=== PATIENT | female | born 1940 ===

== ENCOUNTER 2017-06-22 10:58 | Observation (INO) | payer MEDICAID, OTHER ==
[2017-06-22 12:08] LABS: BASO # 0.1 K/uL (0.0-0.2); EOS # 0.4 K/uL (0.0-0.7); EOS % 4.8 % (0.0-4.0); HEMATOCRIT 38.1 % (34.0-47.0); LYMPH # 1.3 K/uL (1.0-4.3); LYMPH % 16.8 % (20.0-40.0); MEAN CELL VOLUME 80.9 fL (81.0-99.0); MEAN CORPUSCULAR HEMOGLOBIN 26.1 pg (27.0-31.0); MEAN CORPUSCULAR HGB CONC 32.3 g/dL (33.0-37.0); MEAN PLATELET VOLUME 8.6 fL (7.2-11.7); MONO # 0.8 K/uL (0.0-0.8); MONO % 10.3 % (0.0-10.0); RED CELL DISTRIBUTION WIDTH 15.5 % (11.5-14.5); WHITE BLOOD COUNT 7.8 K/uL (4.8-10.8)
--- NOTE | 2017-06-22 12:08 | C.PDOC ---
History Of Present Illness <MoisesRoseline Wai - Last Filed: 06/22/17 12:02> <Daphnie Cai - Last Filed: 06/22/17 12:41> 76 year old female with Hx of COPD presents to the ED for evaluation of productive cough with clear phlegm for the past 2 days that has been worsening along with SOB. Patient reports using her inhaler and mask with albuterol both with no relief to her symptoms. Patient denies fever, throat pain, ear pain, nausea, vomit, headache, weakness, numbness. (Roseline De Leon) History Per: Patient History/Exam Limitations: no limitations Onset/Duration Of Symptoms: Days Current Symptoms Are (Timing): Still Present Sick Contacts (Context): None Associated Symptoms: Cough, Sputum Recent travel outside of the [place]: No Additional History Per: Patient <MoisesRoseline Wai - Last Filed: 06/22/17 12:02> <Daphnie Cai - Last Filed: 06/22/17 12:41> Time Seen by Provider: 06/22/17 11:27 Chief Complaint (Nursing): Cough, Cold, Congestion Past Medical History Reviewed: Historical Data, Nursing Documentation, Vital Signs - Medical History PMH: COPD, HTN, Parkinson's Disease Surgical History: No Surg Hx Family History: States: Unknown Family Hx - Social History Hx Alcohol Use: No Hx Substance Use: No <MoisesGianniRoseline L - Last Filed: 06/22/17 12:02> Vital Signs: Last Vital Signs Temp 97.2 F L 06/22/17 11:07 Pulse 89 06/22/17 11:07 Resp 20 06/22/17 11:59 BP 118/74 06/22/17 11:07 Pulse Ox 96 06/22/17 12:12 Review Of Systems Constitutional: Negative for: Fever, Chills Cardiovascular: Negative for: Chest Pain, Palpitations Respiratory: Positive for: Cough, Shortness of Breath Gastrointestinal: Negative for: Nausea, Vomiting, Abdominal Pain Skin: Negative for: Rash Neurological: Negative for: Weakness, Numbness, Headache, Dizziness <MoisesRoseline L - Last Filed: 06/22/17 12:02> Physical Exam - Physical Exam Appears: Non-toxic, No Acute Distress Skin: Normal Color, Warm, Dry Head: Atraumatic, Normacephalic Nose: No Discharge Oral Mucosa: Moist Neck: Normal ROM, Supple Chest: Symmetrical Cardiovascular: Rhythm Regular, No Murmur Respiratory: Rhonchi (Scatter B/L), Wheezing (Scatter B/L) Extremity: Normal ROM, No Pedal Edema, No Calf Tenderness, No Deformity, No Swelling Neurological/Psych: Oriented x3, Normal Speech, Other (No focal deficits) <Roseline De Leon - Last Filed: 06/22/17 12:02> ED Course And Treatment O2 Sat by Pulse Oximetry: 96 (On RA) Pulse Ox Interpretation: Normal <Roseline De Leon - Last Filed: 06/22/17 12:02> - Laboratory Results Result Diagrams: 06/22/17 12:03 06/22/17 12:03 <Daphnie Cai - Last Filed: 06/22/17 12:41> Medical Decision Making <Roseline De Leon - Last Filed: 06/22/17 12:02> <Daphnie Cai - Last Filed: 06/22/17 12:41> Medical Decision Making: Impression : productive cough, with PMHx of COPD Plan: * ABG shock panel * EKG * Blood work * CXR * Albuterol 3 ml IH * Solumedrol 80 mg IVP * Nebulizer treatment (Roseline De Leon) - PA / [address] VENDOR / Resident Statement MD/DO has reviewed & agrees with the documentation as recorded. - Scribe Statement The provider has reviewed the documentation as recorded by the Scribe <Roseline De Leon - Last Filed: 06/22/17 12:02> <Daphnie Cai - Last Filed: 06/22/17 12:41> - Scribe Statement Noah Gregg All medical record entries made by the Scribe were at my direction and personally dictated by me. I have reviewed the chart and agree that the record accurately reflects my personal performance of the history, physical exam, medical decision making, and the department course for this patient. I have also personally directed, reviewed, and agree with the discharge instructions and disposition. (Roseline De Leon)
[2017-06-22] MEDS ORDERED: MethylPREDNISolone 40 mg Vial ONE (12:18)
[2017-06-22 12:22] LABS: ALB/GLOB RATIO 1.3 (1.0-2.1); ALKALINE PHOSPHATASE 65 U/L (38-126); ALT/SGPT 33 U/L (9-52); AST/SGOT 16 U/L (14-36); BILIRUBIN,TOTAL 0.5 mg/dL (0.2-1.3); BLOOD UREA NITROGEN 17 mg/dL (7-17); CARBON DIOXIDE 33 mmol/L (22-30); CHLORIDE 92 mmol/L (98-107); GFR AFRICAN-AMERICAN > 60; GLUCOSE,RANDOM 103 mg/dL (65-105); POTASSIUM 4.2 mmol/L (3.6-5.2); SODIUM 131 mmol/L (132-148); TOTAL PROTEIN 6.8 g/dL (6.3-8.3)
[2017-06-22 12:30] LABS: ABG ALLEN TEST POS; DRAW SITE RR
[2017-06-22] MEDS: Albuterol-Ipratrop 3 mg / 0.5 (3 ml) UD IH SCH (12:30)
--- NOTE | 2017-06-22 12:49 | C.PDOC ---
History Of Present Illness 76 year old female with Hx of COPD presents to the ED for evaluation of productive cough with clear phlegm for the past 2 days that has been worsening along with SOB. Patient reports using her inhaler and mask with albuterol both with no relief to her symptoms. Patient denies fever, throat pain, ear pain, nausea, vomit, headache, weakness, numbness. Time Seen by Provider: 06/22/17 11:27 Chief Complaint (Nursing): Cough, Cold, Congestion History Per: Patient History/Exam Limitations: no limitations Onset/Duration Of Symptoms: Days Current Symptoms Are (Timing): Still Present Sick Contacts (Context): None Associated Symptoms: Cough, Sputum Ear Symptoms: Bilateral: None Recent travel outside of the [place]: No Additional History Per: Patient Past Medical History Reviewed: Historical Data, Nursing Documentation, Vital Signs Vital Signs: Last Vital Signs Temp 97.9 F 06/22/17 14:38 Pulse 78 06/22/17 14:38 Resp 18 06/22/17 14:38 BP 116/73 06/22/17 14:38 Pulse Ox 96 06/22/17 15:09 - Medical History PMH: COPD, HTN, Parkinson's Disease Surgical History: No Surg Hx Family History: States: Unknown Family Hx - Social History Hx Alcohol Use: No Hx Substance Use: No Review Of Systems Constitutional: Negative for: Fever, Chills Cardiovascular: Negative for: Chest Pain, Palpitations Respiratory: Positive for: Cough, Shortness of Breath Gastrointestinal: Negative for: Nausea, Vomiting, Abdominal Pain Skin: Negative for: Rash Neurological: Negative for: Weakness, Numbness, Headache, Dizziness Physical Exam - Physical Exam Appears: Non-toxic, No Acute Distress Skin: Normal Color, Warm, Dry Head: Atraumatic, Normacephalic Eye(s): bilateral: Normal Inspection, EOMI Ear(s): Bilateral: Normal (no erythema) Nose: Normal, No Discharge Oral Mucosa: Moist Lips: Other (dry) Throat: Normal, No Erythema, No Exudate Neck: Normal ROM, Supple Chest: Symmetrical Cardiovascular: Rhythm Regular, No Murmur Respiratory: Rhonchi (Scattered bilaterally ), Wheezing (diffuse bilaterally) Extremity: Normal ROM, Pedal Edema (trace), No Calf Tenderness, No Swelling Neurological/Psych: Oriented x3, Normal Speech, Other (No focal deficits) ED Course And Treatment - Laboratory Results Result Diagrams: 06/22/17 12:03 06/22/17 12:03 Lab Interpretation: No Acute Changes O2 Sat by Pulse Oximetry: 96 (On RA) Pulse Ox Interpretation: Normal - Radiology CXR: Interpreted by Me, Viewed By Me CXR Interpretation: Yes: Cardiomegaly (Cardiomegaly. Prominent mediastinum. Ectatic aorta. Prominence along the right heart border of uncertain etiology ; possibilities including adenopathy for aneurysmal dilatation of the aorta are not excluded. Correlate clinically. If indicated, CT of the chest with IV contrast may be considered.), Other (No focal consolidation, significant pleural effusion, or definite pneumothorax identified.) Medical Decision Making Medical Decision Making: Impression : productive cough, with PMHx of COPD Plan: ABG shock panel EKG Blood work CXR Albuterol 3 ml IH Solumedrol 80 mg IVP Nebulizer treatment Progress Notes: Labs reviewed. CXR shows COPD, no infiltrate as viewed by me. Radiology report reviewed Cardiomegaly. Prominent mediastinum. Ectatic aorta. Prominence along the right heart border of uncertain etiology ; possibilities including adenopathy for aneurysmal dilatation of the aorta are not excluded. Correlate clinically. If indicated, CT of the chest with IV contrast may be considered. Re-evaluation Time: 1315 Reassessment Condition: Re-examined, Unchanged Patient states she feels the same. Lung sounds minimally improved, air exchange the same. Family member at bedside states once she gets to this point she usually is admitted. Will contact hospitalist for observation. [id number] Contact and spoke with hospitalist Dr Darnell and discussed case and he accepts obs-admission for COPD. Dispo: Admit for observation of COPD Exacerbation. Disposition - Disposition Disposition: HOSPITALIZED Disposition Time: 13:39 Condition: FAIR - POA Present On Arrival: None - Clinical Impression Clinical Impression: COPD with exacerbation - PA / DESIGN QUALITY ENGINEER / Resident Statement MD/DO has reviewed & agrees with the documentation as recorded. - Scribe Statement The provider has reviewed the documentation as recorded by the Scribe Noah Gregg All medical record entries made by the Scribe were at my direction and personally dictated by me. I have reviewed the chart and agree that the record accurately reflects my personal performance of the history, physical exam, medical decision making, and the department course for this patient. I have also personally directed, reviewed, and agree with the discharge instructions and disposition. Decision To Admit - Pt Status Changed To: Hospital Disposition Of: Observation - . Bed Request Type: Regular Patient Diagnosis: COPD with exacerbation Nebulizer Treatments/Peak Flow - Duonebs Number of Bronchodilator Doses given?: 3 - Steroid Treatment Steroid: IV - Clinical Response Clinical Response: Unchanged
--- NOTE | 2017-06-22 13:05 | RAD ---
HISTORY: cough and sob COMPARISON: None available TECHNIQUE: Chest PA and lateral FINDINGS: LUNGS: No focal consolidation. Please note that chest x-ray has limited sensitivity for the detection of pulmonary masses. PLEURA: No significant pleural effusion identified. No definite pneumothorax . CARDIOVASCULAR: Cardiomegaly. Prominent mediastinum. Ectatic aorta. Prominence along the right heart border of uncertain etiology ; underlying adenopathy is not included. OSSEOUS STRUCTURES: Osseous demineralization. Degenerative changes. VISUALIZED UPPER ABDOMEN: Unremarkable. OTHER FINDINGS: None. IMPRESSION: No focal consolidation, significant pleural effusion, or definite pneumothorax identified. Cardiomegaly. Prominent mediastinum. Ectatic aorta. Prominence along the right heart border of uncertain etiology ; possibilities including adenopathy for aneurysmal dilatation of the aorta are not excluded. Correlate clinically. If indicated, CT of the chest with IV contrast may be considered.
--- NOTE | 2017-06-22 14:29 | CP.PCM.HP ---
<Marlyn Edgar - Last Filed: 06/22/17 15:33> History of Present Illness - History of Present Illness History of Present Illness: CC: Cough and SOB HPI (As per daughter at bedside and care program director): Patient is a 76 year old female with past medical history of Hypothyroidism, Diabetes, hypertension, COPD(Diagnosed 10 years ago in [facility]), who presents to the ED with complaints of productive cough, with white phelgm and SOB for the past two days. Patient states that her symptoms have worsened over the past two days and experiences minimal relief with the use of her inhalers. Patient admits to fatigue but denies chest pain, palpitations, SOB, dizziness, nausea, vomiting, fever, chills, night sweats, abdominal pain, diarrhea, constipation, recent sickness or sick contact and recent travels. 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 Denies current or former use of tobacco, ETOH and illicit drugs. admits to heavy second hand smoking exposure Present on Admission - Present on Admission Any Indicators Present on Admission: No Review of Systems - Constitutional Constitutional: Fatigue. absent: Chills, Fever, Headache, Lethargy, Night Sweats - EENT Eyes: absent: Blurred Vision, Change in Vision Ears: absent: Dizziness Nose/Mouth/Throat: absent: Nasal Congestion, Nasal Discharge, Hoarsness, Sore Throat - Cardiovascular Cardiovascular: Dyspnea, Dyspnea on Exertion. absent: Chest Pain, Chest Pain at Rest, Chest Pain with Activity, Diaphoresis, Leg Edema, Leg Ulcers, Lightheadedness, Orthopnea, Pedal Edema, Radiating Pain, Rapid Heart Rate, Syncope - Respiratory Respiratory: Cough, Dyspnea, Dyspnea on Exertion, Wheezing, Excessive Mucous Production. absent: Pain on Inspiration, Change in Mucous Color, Pain with Coughing - Gastrointestinal Gastrointestinal: absent: Abdominal Pain, Constipation, Diarrhea, Nausea, Vomiting - Genitourinary Genitourinary: absent: Dysuria, Pyuria - Musculoskeletal Musculoskeletal: absent: Arthralgias - Neurological Neurological: absent: Dizziness - Psychiatric Psychiatric: absent: Change in Appetite - Endocrine Endocrine: Fatigue. absent: Palpitations Past Patient History - Past Social History Smoking Status: Never Smoked - CARDIAC Hx Hypertension: Yes - PULMONARY Hx Chronic Obstructive Pulmonary Disease (COPD): Yes - NEUROLOGICAL Hx Parkinson's Disease: Yes - PSYCHIATRIC Hx Substance Use: No Meds Allergies/Adverse Reactions: Allergies Allergy/AdvReac Type Severity Reaction Status Date / Time No Known Allergies Allergy Verified 06/22/17 11:09 Physical Exam - Constitutional Appears: No Acute Distress - Head Exam Head Exam: ATRAUMATIC, NORMAL INSPECTION - Eye Exam Eye Exam: EOMI, Normal appearance - ENT Exam ENT Exam: Mucous Membranes Moist - Respiratory Exam Respiratory Exam: Wheezes, NORMAL BREATHING PATTERN Additional comments: 2L NC - Cardiovascular Exam Cardiovascular Exam: REGULAR RHYTHM, +S1, +S2 - GI/Abdominal Exam GI & Abdominal Exam: Normal Bowel Sounds, Soft. absent: Tenderness - Extremities Exam Extremities exam: Positive for: tenderness. Negative for: normal inspection, pedal edema - Neurological Exam Neurological exam: Alert - Psychiatric Exam Psychiatric exam: Normal Affect, Normal Mood - Skin Skin Exam: Normal Color Results - Vital Signs Recent Vital Signs: Last Vital Signs Temp 97.2 F L 06/22/17 11:07 Pulse 103 H 06/22/17 13:21 Resp 16 06/22/17 13:21 BP 124/62 06/22/17 13:21 Pulse Ox 96 06/22/17 13:39 - Labs Result Diagrams: 06/22/17 12:03 06/22/17 12:03 Labs: Laboratory Results - last 24 hr 06/22/17 06/22/17 06/22/17 12:03 12:03 12:25 WBC 7.8 RBC 4.70 Hgb 12.3 Hct 38.1 MCV 80.9 L MCH 26.1 L MCHC 32.3 L RDW 15.5 H Plt Count 299 MPV 8.6 Neut % (Auto) 67.1 Lymph % (Auto) 16.8 L [place] % (Auto) 10.3 H Eos % (Auto) 4.8 H Baso % (Auto) 1.0 Neut # 5.2 Lymph # 1.3 [place] # 0.8 Eos # 0.4 Baso # 0.1 Puncture Site Rr pCO2 43 pO2 88 HCO3 26.6 ABG pH 7.41 ABG Total CO2 28.6 H ABG O2 Saturation 98.8 H ABG Base Excess 2.2 Rohit Test Pos ABG Potassium 4.4 A-a O2 Difference 58.0 Respiratory Index 0.7 Glucose 97 Lactate 2.1 Liter Flow 2.0 FiO2 28.0 Sodium 131 L 131.0 L Potassium 4.2 Chloride 92 L 96.0 L Carbon Dioxide 33 H Anion Gap 10 BUN 17 Creatinine 0.8 Est GFR ( Amer) > 60 Est GFR (Non-Af Amer) > 60 Random Glucose 103 Calcium 8.0 L Total Bilirubin 0.5 AST 16 ALT 33 Alkaline Phosphatase 65 NT-Pro-B Natriuret Pep 109 Total Protein 6.8 Albumin 3.8 Globulin 3.0 Albumin/Globulin Ratio 1.3 Arterial Blood Potassium 4.4 Assessment & Plan (1) COPD with exacerbation Assessment and Plan: On admission: AB.41/88/43/26.6 Chest X-ray: No focal consolidation, significant pleural effusion, or definite pneumothorax identified. Cardiomegaly. Prominent mediastinum. Ectatic aorta. Prominence along the right heart border of uncertain etiology ; possibilities including adenopathy for aneurysmal dilatation of the aorta are not excluded. Correlate clinically. If indicated, CT of the chest with IV contrast may be considered. Medications: * Methylprednisone 40mg IV Q8H * Azithromycin 500mg IV daily * Duonebs RQ6 * Advair 500/50 1 puff RQ12H Status: Acute (2) Bilateral lower extremity pain Assessment and Plan: f/u bilateral venous doppler SCD contraindicated until venous doppler negative Status: Acute (3) Hypertension Assessment and Plan: Continue home medications: * Lorsartan 50mg PO daily Status: Acute (4) Diabetes mellitus Assessment and Plan: Accuchecks ISS low dose ( till 06/23/17) Resume home medication (06/23/17): Metformin 500mg PO BID F/u HgbA1c and lipid panel Status: Acute (5) Hypothyroidism Assessment and Plan: Continue home medications: * Levothyroxine 100mcg daily F/u TSH Status: Acute (6) Prophylactic measure Assessment and Plan: GI: Pepcid 20mg PO daily DVT: SCD contraindicated at the moment due to bilateral leg tenderness, f/u venous doppler, Lovenox 40mg SC daily Aspirin 81mg PO daily Heart healthy diet PT and OT Status: Acute <DarnellTito roberson H - Last Filed: 06/22/17 18:18> Results - Vital Signs Recent Vital Signs: Last Vital Signs Temp 97.9 F 06/22/17 14:38 Pulse 107 H 06/22/17 16:51 Resp 18 06/22/17 16:51 BP 120/67 06/22/17 16:51 Pulse Ox 95 06/22/17 16:51 - Labs Result Diagrams: 06/22/17 12:03 06/22/17 12:03 Labs: Laboratory Results - last 24 hr 06/22/17 06/22/17 06/22/17 12:03 12:03 12:25 WBC 7.8 RBC 4.70 Hgb 12.3 Hct 38.1 MCV 80.9 L MCH 26.1 L MCHC 32.3 L RDW 15.5 H Plt Count 299 MPV 8.6 Neut % (Auto) 67.1 Lymph % (Auto) 16.8 L [place] % (Auto) 10.3 H Eos % (Auto) 4.8 H Baso % (Auto) 1.0 Neut # 5.2 Lymph # 1.3 [place] # 0.8 Eos # 0.4 Baso # 0.1 Puncture Site Rr pCO2 43 pO2 88 HCO3 26.6 ABG pH 7.41 ABG Total CO2 28.6 H ABG O2 Saturation 98.8 H ABG Base Excess 2.2 Rohit Test Pos ABG Potassium 4.4 A-a O2 Difference 58.0 Respiratory Index 0.7 Glucose 97 Lactate 2.1 Liter Flow 2.0 FiO2 28.0 Sodium 131 L 131.0 L Potassium 4.2 Chloride 92 L 96.0 L Carbon Dioxide 33 H Anion Gap 10 BUN 17 Creatinine 0.8 Est GFR ( Amer) > 60 Est GFR (Non-Af Amer) > 60 POC Glucose (mg/dL) Random Glucose 103 Calcium 8.0 L Total Bilirubin 0.5 AST 16 ALT 33 Alkaline Phosphatase 65 NT-Pro-B Natriuret Pep 109 Total Protein 6.8 Albumin 3.8 Globulin 3.0 Albumin/Globulin Ratio 1.3 Arterial Blood Potassium 4.4 06/22/17 16:48 WBC RBC Hgb Hct MCV MCH MCHC RDW Plt Count MPV Neut % (Auto) Lymph % (Auto) [place] % (Auto) Eos % (Auto) Baso % (Auto) Neut # Lymph # [place] # Eos # Baso # Puncture Site pCO2 pO2 HCO3 ABG pH ABG Total CO2 ABG O2 Saturation ABG Base Excess Rohit Test ABG Potassium A-a O2 Difference Respiratory Index Glucose Lactate Liter Flow FiO2 Sodium Potassium Chloride Carbon Dioxide Anion Gap BUN Creatinine Est GFR ( Amer) Est GFR (Non-Af Amer) POC Glucose (mg/dL) 245 H Random Glucose Calcium Total Bilirubin AST ALT Alkaline Phosphatase NT-Pro-B Natriuret Pep Total Protein Albumin Globulin Albumin/Globulin Ratio Arterial Blood Potassium Attending/Attestation - Attestation I have personally seen and examined this patient.: Yes I have fully participated in the care of the patient.: Yes I have reviewed all pertinent clinical information: Yes Notes (Text): Medical attending: Patient was seen and examined by me as well, agrees the above note by the medical chemist. I reviewed the planned. Agree with this. The patient was with family member at bedside, the patient was okay with this. This is a 76-year-old female who has a history of COPD for about 10 years now. They deny any smoking but they report that this been a lot of secondhand smoking exposure. In the emergency room she had one DuoNeb given as well as Solu -Medrol 80 given as well. She had a chest x-ray done that did not show any infiltrates or masses were to hold off on ordering a CT scan at this time. At home she has a Ventolin inhaler as well as Flovent inhaler. Were to try the patient on duo nebulizers, IV Solu-Medrol, and change control manager to Advair. It's possible that she could be going home tomorrow we'll have to evaluate the patient and see how she does thank you Tito Darnell
[2017-06-22] MEDS ORDERED: MethylPREDNISolone 40 mg Vial IVP SCH (14:45)
[2017-06-22] MEDS ORDERED: Dextrose 50% SYRINGE Inj (50 ml) IVP PRN (15:18)
[2017-06-22] MEDS ORDERED: Glucagon Recombinant 1 mg Inj IM PRN (15:18)
[2017-06-22] MEDS: Azithromycin 500 MG in Sodium Chloride 0.9% 250 ML IVPB SCH (16:38)
[2017-06-22] MEDS ORDERED: (Novolin R) Insulin Human Regular 100 units/ml vial ONE (17:00)
[2017-06-22] MEDS: (Novolog) Insulin Aspart, Recombinant 100 u/ml 10 ml vial SC SCH ×2 (17:02→23:08)
[2017-06-22 19:45] VITALS: RESP 20
[2017-06-22] MEDS ORDERED: Fluticasone-Salmeterol 500-50mcg Diskus INH SCH (20:00)
[2017-06-22] MEDS: MethylPREDNISolone 40 mg Vial IVP SCH (20:30)
[2017-06-23] MEDS: Albuterol-Ipratrop 3 mg / 0.5 (3 ml) UD INH SCH ×3 (01:22→13:30)
[2017-06-23 01:52] VITALS: O2SAT 96
[2017-06-23] MEDS: MethylPREDNISolone 40 mg Vial IVP SCH ×2 (04:32→13:09)
[2017-06-23] MEDS ORDERED: Levothyroxine 100 MCG TAB PO SCH (06:30)
[2017-06-23 07:17] LABS: BASO % 0.1 % (0.0-2.0); HEMATOCRIT 37.8 % (34.0-47.0); LYMPH # 0.8 K/uL (1.0-4.3); LYMPH % 8.4 % (20.0-40.0); MEAN CELL VOLUME 80.7 fL (81.0-99.0); MEAN CORPUSCULAR HEMOGLOBIN 26.3 pg (27.0-31.0); MEAN CORPUSCULAR HGB CONC 32.6 g/dL (33.0-37.0); MEAN PLATELET VOLUME 8.6 fL (7.2-11.7); MONO # 0.2 K/uL (0.0-0.8); MONO % 2.4 % (0.0-10.0); NRBC % 0.1 % (0.0-2.0); PLATELET COUNT 325 K/uL (130-400); RED CELL DISTRIBUTION WIDTH 15.6 % (11.5-14.5); WHITE BLOOD COUNT 9.2 K/uL (4.8-10.8)
[2017-06-23 07:45] LABS: ALB/GLOB RATIO 1.4 (1.0-2.1); ALKALINE PHOSPHATASE 69 U/L (38-126); ALT/SGPT 31 U/L (9-52); AST/SGOT 17 U/L (14-36); BILIRUBIN,TOTAL 0.5 mg/dL (0.2-1.3); BLOOD UREA NITROGEN 17 mg/dL (7-17); CALCIUM 8.3 mg/dl (8.6-10.4); CARBON DIOXIDE 32 mmol/L (22-30); CHLORIDE 96 mmol/L (98-107); CHOLESTEROL 127 mg/dL (0-199); GFR AFRICAN-AMERICAN > 60; GLUCOSE,RANDOM 175 mg/dL (65-105); POTASSIUM 4.4 mmol/L (3.6-5.2); SODIUM 136 mmol/L (132-148); TOTAL PROTEIN 6.8 g/dL (6.3-8.3)
[2017-06-23] MEDS: (Novolog) Insulin Aspart, Recombinant 100 u/ml 10 ml vial SC SCH (08:03)
[2017-06-23 08:46] VITALS: BP 134/82; PULSE 85; TEMP 98.6
[2017-06-23 09:17] LABS: NEUTROPHIL 91 % (50-75); TOTAL CELLS COUNTED 100
[2017-06-23] MEDS ORDERED: Enoxaparin 40 mg Syringe SC SCH (10:00)
--- NOTE | 2017-06-23 11:25 | VASCLAB ---
PROCEDURE: Lower Extremity Venous Duplex Exam. HISTORY: Bilateral leg tenderness PRIORS: None. TECHNIQUE: Bilateral common femoral, femoral, popliteal and posterior tibial, peroneal and great saphenous veins were evaluated. Flow was assessed with color Doppler, compressibility, assessment of phasic flow and augmentation response. Report prepared by TRE Romo FINDINGS: RIGHT: 1. Common Femoral Vein: 1.1. Compressibility - Fully compressible: Thrombus - None : Flow - Phasic: Augmentation -Normal: Reflux - None. 2. Femoral Vein: 2.1. Compressibility - Fully compressible: Thrombus - None : Flow - Phasic: Augmentation -Normal: Reflux - None. 3. Popliteal Vein: 3.1. Compressibility - Fully compressible: Thrombus - None : Flow - Phasic: Augmentation -Normal: Reflux - Mild.2.83s 4. Posterior Tibial Vein: 4.1. Compressibility - Fully compressible: Thrombus - None: Flow - Phasic: Augmentation -Normal: Reflux - None. 5. Peroneal Vein: 5.1. Compressibility - Fully compressible: Thrombus - None: Flow - Phasic: Augmentation -Normal: Reflux - None. 6. Great Saphenous Vein: 6.1. Compressibility - Fully compressible: Thrombus - None: Flow - Phasic: Augmentation - Normal: Reflux - Mild.1.69s LEFT: 1. Common Femoral Vein: 1.1. Compressibility - Fully compressible: Thrombus - None: Flow - Phasic: Augmentation -Normal: Reflux - None. 2. Femoral Vein: 2.1. Compressibility - Fully compressible: Thrombus - None: Flow - Phasic: Augmentation -Normal: Reflux - None. 3. Popliteal Vein: 3.1. Compressibility - Fully compressible: Thrombus - None : Flow - Phasic: Augmentation -Normal: Reflux - None. 4. Posterior Tibial Vein: 4.1. Compressibility - Fully compressible: Thrombus - None: Flow - Phasic: Augmentation -Normal: Reflux - None. 5. Peroneal Vein: 5.1. Compressibility - Fully compressible: Thrombus - None: Flow - Phasic: Augmentation -Normal: Reflux - None. 6. Great Saphenous Vein: 6.1. Compressibility - Fully compressible: Thrombus - None: Flow - Phasic: Augmentation - Normal: Reflux - Mild.2.89s OTHER FINDINGS: IMPRESSION: Right: No evidence of deep or superficial vein thrombosis of the right lower extremity. Valvular incompetence noted of the right popliteal and great saphenous veins. Left: No evidence of deep or superficial vein thrombosis of the left lower extremity. Valvular incompetence noted of the left great saphenous vein.
[2017-06-23] MEDS: Azithromycin 500 MG in Sodium Chloride 0.9% 250 ML IVPB SCH (11:36)
--- NOTE | 2017-06-23 13:03 | CP.PCM.DIS ---
<Silvia Nguyen - Last Filed: 06/23/17 13:08> Provider - Provider Date of Admission: 06/22/17 13:41 Attending physician: Tito Darnell DO Time Spent in preparation of Discharge (in minutes): 55 Hospital Course - Lab Results Lab Results: Most Recent Lab Values WBC 9.2 K/uL (4.8-10.8) 06/23/17 07:05 RBC 4.68 Mil/uL (3.80-5.20) 06/23/17 07:05 Hgb 12.3 g/dL (11.0-16.0) 06/23/17 07:05 Hct 37.8 % (34.0-47.0) 06/23/17 07:05 MCV 80.7 fL (81.0-99.0) L 06/23/17 07:05 MCH 26.3 pg (27.0-31.0) L 06/23/17 07:05 MCHC 32.6 g/dL (33.0-37.0) L 06/23/17 07:05 RDW 15.6 % (11.5-14.5) H 06/23/17 07:05 Plt Count 325 K/uL (130-400) 06/23/17 07:05 MPV 8.6 fL (7.2-11.7) 06/23/17 07:05 Neut % (Auto) 89.1 % (50.0-75.0) H 06/23/17 07:05 Lymph % (Auto) 8.4 % (20.0-40.0) L 06/23/17 07:05 Andrews % (Auto) 2.4 % (0.0-10.0) 06/23/17 07:05 Eos % (Auto) 0.0 % (0.0-4.0) 06/23/17 07:05 Baso % (Auto) 0.1 % (0.0-2.0) 06/23/17 07:05 Neut # 8.2 K/uL (1.8-7.0) H 06/23/17 07:05 Lymph # 0.8 K/uL (1.0-4.3) L 06/23/17 07:05 Andrews # 0.2 K/uL (0.0-0.8) 06/23/17 07:05 Eos # 0.0 K/uL (0.0-0.7) 06/23/17 07:05 Baso # 0.0 K/uL (0.0-0.2) 06/23/17 07:05 Neutrophils % (Manual) 91 % (50-75) H 06/23/17 07:05 Lymphocytes % (Manual) 8 % (20-40) L 06/23/17 07:05 Monocytes % (Manual) 1 % (0-10) 06/23/17 07:05 Platelet Estimate Normal (NORMAL) 06/23/17 07:05 RBC Morphology Normal 06/23/17 07:05 Puncture Site Rr 06/22/17 12:25 pCO2 43 mm/Hg (35-45) 06/22/17 12:25 pO2 88 mm/Hg (80-100) 06/22/17 12:25 HCO3 26.6 mmol/L (21-28) 06/22/17 12:25 ABG pH 7.41 (7.35-7.45) 06/22/17 12:25 ABG Total CO2 28.6 mmol/L (22-28) H 06/22/17 12:25 ABG O2 Saturation 98.8 % (95-98) H 06/22/17 12:25 ABG Base Excess 2.2 mmol/L (-2.0-3.0) 06/22/17 12:25 Rohit Test Pos 06/22/17 12:25 ABG Potassium 4.4 mmol/L (3.6-5.2) 06/22/17 12:25 A-a O2 Difference 58.0 mm/Hg 06/22/17 12:25 Respiratory Index 0.7 06/22/17 12:25 Sodium 131.0 mmol/l (132-148) L 06/22/17 12:25 Chloride 96.0 mmol/L (98-107) L 06/22/17 12:25 Glucose 97 mg/dl (65-105) 06/22/17 12:25 Lactate 2.1 mmol/L (0.7-2.1) 06/22/17 12:25 Liter Flow 2.0 06/22/17 12:25 FiO2 28.0 % 06/22/17 12:25 Sodium 136 mmol/L (132-148) 06/23/17 07:05 Potassium 4.4 mmol/L (3.6-5.2) 06/23/17 07:05 Chloride 96 mmol/L (98-107) L 06/23/17 07:05 Carbon Dioxide 32 mmol/L (22-30) H 06/23/17 07:05 Anion Gap 12 (10-20) 06/23/17 07:05 BUN 17 mg/dL (7-17) 06/23/17 07:05 Creatinine 0.7 mg/dL (0.7-1.2) 06/23/17 07:05 Est GFR ( Amer) > 60 06/23/17 07:05 Est GFR (Non-Af Amer) > 60 06/23/17 07:05 POC Glucose (mg/dL) 181 mg/dL (65-110) H 06/23/17 11:01 Random Glucose 175 mg/dL (65-105) H 06/23/17 07:05 Hemoglobin A1c 6.7 % (4.2-6.5) H 06/23/17 07:05 Calcium 8.3 mg/dl (8.6-10.4) L 06/23/17 07:05 Total Bilirubin 0.5 mg/dL (0.2-1.3) 06/23/17 07:05 AST 17 U/L (14-36) 06/23/17 07:05 ALT 31 U/L (9-52) 06/23/17 07:05 Alkaline Phosphatase 69 U/L (38-126) 06/23/17 07:05 NT-Pro-B Natriuret Pep 109 pg/mL (0-900) 06/22/17 12:03 Total Protein 6.8 g/dL (6.3-8.3) 06/23/17 07:05 Albumin 3.9 g/dL (3.5-5.0) 06/23/17 07:05 Globulin 2.9 gm/dL (2.2-3.9) 06/23/17 07:05 Albumin/Globulin Ratio 1.4 (1.0-2.1) 06/23/17 07:05 Triglycerides 54 mg/dL (0-149) 06/23/17 07:05 Cholesterol 127 mg/dL (0-199) 06/23/17 07:05 LDL Cholesterol Direct 71 mg/dL (0-129) 06/23/17 07:05 HDL Cholesterol 40 mg/dL (30-70) 06/23/17 07:05 Arterial Blood Potassium 4.4 mmol/L (3.6-5.2) 06/22/17 12:25 - Hospital Course Hospital Course: Upon Admission: CC: Cough and SOB HPI (As per daughter at bedside and family day care provider): Patient is a 76 year old female with past medical history of Hypothyroidism, Diabetes, hypertension, COPD(Diagnosed 10 years ago in [facility]), who presents to the ED with complaints of productive cough, with white phelgm and SOB for the past two days. Patient states that her symptoms have worsened over the past two days and experiences minimal relief with the use of her inhalers. Patient admits to fatigue but denies chest pain, palpitations, SOB, dizziness, nausea, vomiting, fever, chills, night sweats, abdominal pain, diarrhea, constipation, recent sickness or sick contact and recent travels. 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 Denies current or former use of tobacco, ETOH and illicit drugs. admits to heavy second hand smoking exposure Throughout Hospital Course: Patient was admitted for COPD exacerbation (1) COPD with exacerbation Assessment and Plan: On admission: AB.41/88/43/26.6 Chest X-ray: No focal consolidation, significant pleural effusion, or definite pneumothorax identified. Cardiomegaly. Prominent mediastinum. Ectatic aorta. Prominence along the right heart border of uncertain etiology ; possibilities including adenopathy for aneurysmal dilatation of the aorta are not excluded. Correlate clinically. If indicated, CT of the chest with IV contrast may be considered. Medications: * Methylprednisone 40mg IV Q8H * Azithromycin 500mg IV daily * Duonebs RQ6 * Advair 500/50 1 puff RQ12H (2) Bilateral lower extremity pain Assessment and Plan: Bilateral venous doppler - negative for DVT SCD contraindicated until venous doppler negative (3) Hypertension Assessment and Plan: Continue home medications: * Lorsartan 50mg PO daily (4) Diabetes mellitus Assessment and Plan: Accuchecks ISS low dose ( till 06/23/17) Resume home medication (06/23/17): Metformin 500mg PO BID HgbA1c - 6.7 and lipid panel - WNL (5) Hypothyroidism Assessment and Plan: Continue home medications: * Levothyroxine 100mcg daily (6) Prophylactic measure Assessment and Plan: GI: Pepcid 20mg PO daily DVT: SCD contraindicated at the moment due to bilateral leg tenderness, Lovenox 40mg SC daily Aspirin 81mg PO daily Heart healthy diet Patient is discharged with Zpack, Steroid taper, and albuterol. She is to follow up with PMD within 1 week. This is a brief summary of the patient's hospital course. Please review EMR for full record. Discharge Exam - Head Exam Head Exam: ATRAUMATIC, NORMAL INSPECTION - Additional Findings Additional findings: - Constitutional Appears: No Acute Distress - Head Exam Head Exam: ATRAUMATIC, NORMAL INSPECTION - Eye Exam Eye Exam: EOMI, Normal appearance - ENT Exam ENT Exam: Mucous Membranes Moist - Respiratory Exam Respiratory Exam: CTA bilaterally, NORMAL BREATHING PATTERN Additional comments: 2L NC - Cardiovascular Exam Cardiovascular Exam: REGULAR RHYTHM, +S1, +S2 - GI/Abdominal Exam GI & Abdominal Exam: Normal Bowel Sounds, Soft. absent: Tenderness - Extremities Exam Extremities exam: Positive for: tenderness. Negative for: normal inspection, pedal edema - Neurological Exam Neurological exam: Alert - Psychiatric Exam Psychiatric exam: Normal Affect, Normal Mood - Skin Skin Exam: Normal Color Discharge Plan - Discharge Medications Prescriptions: Albuterol HFA [Ventolin HFA 90 mcg/actuation (8 g)] 1 puff IH Q4H PRN #1 inhaler PRN Reason: Shortness Of Breath Azithromycin [Z-Edmond] 250 mg PO DAILY #6 tab Famotidine [Pepcid] 20 mg PO DAILY #30 tab predniSONE [predniSONE Tab] 10 mg PO TID #9 tab predniSONE [predniSONE Tab] 10 mg PO DAILY #3 tab predniSONE [predniSONE Tab] 20 mg PO BID #6 tab predniSONE [predniSONE Tab] 20 mg PO DAILY #3 tab - Follow Up Plan Condition: FAIR Disposition: HOME/ ROUTINE Instructions: Famotidine (By mouth), Albuterol (By breathing), Prednisone (By mouth), Azithromycin (By mouth), COPD (Chronic Obstructive Pulmonary Disease) ( DC) Additional Instructions: Please continue to take the medications you have at home that were prescribed to you by Dr. Ivy. Please make an appointment for the clinic downstairs in 1 week for follow up. Please also take: Predisone 20mg by mouth twice a day for 3 days Predisone 10mg by mouth three times a day for 3 days Predisone 20mg by mouth once a day for 3 days Predisone 10mg by mouth once a day for 3 days Please also take Pepcid 20mg by mouth once a day to help protect your stomach from the steroids you will be taking. Please also use your albuterol inhaler 1-2 puffs every 4 hours NEEDED if you feel short of breath. Please return to the emergency room if your symptoms get worse or return. -- Contine tomando los medicamentos que tiene en jeffery hogar que le recet el Dr. Ivy. Danika kayli gail para la clnica de la planta baja en 1 semana para el seguimiento. Por favor tome tambin: Predisona 20 mg por va oral dos veces al da avani 3 villasenor Predisona 10 mg por va oral july veces al da avani 3 villasenor Predisona 20 mg por va oral kayli vez al da avani 3 villasenor Predisona 10 mg por va oral kayli vez al da avani 3 villasenor Tambin tome Pepcid 20mg por va oral kayli vez al da para ayudar a proteger jeffery estmago de los esteroides que any. Utilice tambin jeffery inhalador de albuterol 1-2 inhalaciones cada 4 horas SEGN SEA NECESARIO si siente falta de aliento. Por favor regrese a la brannon de emergencias si siva sntomas empeoran o regresan. Referrals: [facility] [Outside] <Tito Darnell - Last Filed: 06/23/17 13:42> Provider - Provider Date of Admission: 06/22/17 13:41 Attending physician: Tito Darnell DO Hospital Course - Lab Results Lab Results: Most Recent Lab Values WBC 9.2 K/uL (4.8-10.8) 06/23/17 07:05 RBC 4.68 Mil/uL (3.80-5.20) 06/23/17 07:05 Hgb 12.3 g/dL (11.0-16.0) 06/23/17 07:05 Hct 37.8 % (34.0-47.0) 06/23/17 07:05 MCV 80.7 fL (81.0-99.0) L 06/23/17 07:05 MCH 26.3 pg (27.0-31.0) L 06/23/17 07:05 MCHC 32.6 g/dL (33.0-37.0) L 06/23/17 07:05 RDW 15.6 % (11.5-14.5) H 06/23/17 07:05 Plt Count 325 K/uL (130-400) 06/23/17 07:05 MPV 8.6 fL (7.2-11.7) 06/23/17 07:05 Neut % (Auto) 89.1 % (50.0-75.0) H 06/23/17 07:05 Lymph % (Auto) 8.4 % (20.0-40.0) L 06/23/17 07:05 Andrews % (Auto) 2.4 % (0.0-10.0) 06/23/17 07:05 Eos % (Auto) 0.0 % (0.0-4.0) 06/23/17 07:05 Baso % (Auto) 0.1 % (0.0-2.0) 06/23/17 07:05 Neut # 8.2 K/uL (1.8-7.0) H 06/23/17 07:05 Lymph # 0.8 K/uL (1.0-4.3) L 06/23/17 07:05 Andrews # 0.2 K/uL (0.0-0.8) 06/23/17 07:05 Eos # 0.0 K/uL (0.0-0.7) 06/23/17 07:05 Baso # 0.0 K/uL (0.0-0.2) 06/23/17 07:05 Neutrophils % (Manual) 91 % (50-75) H 06/23/17 07:05 Lymphocytes % (Manual) 8 % (20-40) L 06/23/17 07:05 Monocytes % (Manual) 1 % (0-10) 06/23/17 07:05 Platelet Estimate Normal (NORMAL) 06/23/17 07:05 RBC Morphology Normal 06/23/17 07:05 Puncture Site Rr 06/22/17 12:25 pCO2 43 mm/Hg (35-45) 06/22/17 12:25 pO2 88 mm/Hg (80-100) 06/22/17 12:25 HCO3 26.6 mmol/L (21-28) 06/22/17 12:25 ABG pH 7.41 (7.35-7.45) 06/22/17 12:25 ABG Total CO2 28.6 mmol/L (22-28) H 06/22/17 12:25 ABG O2 Saturation 98.8 % (95-98) H 06/22/17 12:25 ABG Base Excess 2.2 mmol/L (-2.0-3.0) 06/22/17 12:25 Rohit Test Pos 06/22/17 12:25 ABG Potassium 4.4 mmol/L (3.6-5.2) 06/22/17 12:25 A-a O2 Difference 58.0 mm/Hg 06/22/17 12:25 Respiratory Index 0.7 06/22/17 12:25 Sodium 131.0 mmol/l (132-148) L 06/22/17 12:25 Chloride 96.0 mmol/L (98-107) L 06/22/17 12:25 Glucose 97 mg/dl (65-105) 06/22/17 12:25 Lactate 2.1 mmol/L (0.7-2.1) 06/22/17 12:25 Liter Flow 2.0 06/22/17 12:25 FiO2 28.0 % 06/22/17 12:25 Sodium 136 mmol/L (132-148) 06/23/17 07:05 Potassium 4.4 mmol/L (3.6-5.2) 06/23/17 07:05 Chloride 96 mmol/L (98-107) L 06/23/17 07:05 Carbon Dioxide 32 mmol/L (22-30) H 06/23/17 07:05 Anion Gap 12 (10-20) 06/23/17 07:05 BUN 17 mg/dL (7-17) 06/23/17 07:05 Creatinine 0.7 mg/dL (0.7-1.2) 06/23/17 07:05 Est GFR ( Amer) > 60 06/23/17 07:05 Est GFR (Non-Af Amer) > 60 06/23/17 07:05 POC Glucose (mg/dL) 181 mg/dL (65-110) H 06/23/17 11:01 Random Glucose 175 mg/dL (65-105) H 06/23/17 07:05 Hemoglobin A1c 6.7 % (4.2-6.5) H 06/23/17 07:05 Calcium 8.3 mg/dl (8.6-10.4) L 06/23/17 07:05 Total Bilirubin 0.5 mg/dL (0.2-1.3) 06/23/17 07:05 AST 17 U/L (14-36) 06/23/17 07:05 ALT 31 U/L (9-52) 06/23/17 07:05 Alkaline Phosphatase 69 U/L (38-126) 06/23/17 07:05 NT-Pro-B Natriuret Pep 109 pg/mL (0-900) 06/22/17 12:03 Total Protein 6.8 g/dL (6.3-8.3) 06/23/17 07:05 Albumin 3.9 g/dL (3.5-5.0) 06/23/17 07:05 Globulin 2.9 gm/dL (2.2-3.9) 06/23/17 07:05 Albumin/Globulin Ratio 1.4 (1.0-2.1) 06/23/17 07:05 Triglycerides 54 mg/dL (0-149) 06/23/17 07:05 Cholesterol 127 mg/dL (0-199) 06/23/17 07:05 LDL Cholesterol Direct 71 mg/dL (0-129) 06/23/17 07:05 HDL Cholesterol 40 mg/dL (30-70) 06/23/17 07:05 Arterial Blood Potassium 4.4 mmol/L (3.6-5.2) 06/22/17 12:25 Attending/Attestation - Attestation I have personally seen and examined this patient.: Yes I have fully participated in the care of the patient.: Yes I have reviewed all pertinent clinical information, including history, physical exam and plan: Yes Notes (Text): 06/23/17 13:39 Medical attending: Patient was seen and examined by me, agrees the above note by medical director. The patient's family member was at bedside as well, the patient was okay with this. I was able to asked the patient about her breathing and she said she felt much better than previously. She also said that her coughing was much less than before. We also reviewed her lab work was well this was okay. So we'll discharge the patient today on a tapering dose of prednisone and also a Z-Edmond. The patient and her family member understand that she should follow-up at the [facility] medical clinic. Also because it is cold outside I explained to the patient and family member that before exposure to cold air she could take 2 puffs of her rescue inhaler. Thank you very much, Tito Darnell
[2017-06-23] MEDS ORDERED: Pneumococcal 23-Valent Vaccine IM ONE (13:15)
[2017-06-23] MEDS ORDERED: Influenza Vaccine 60 mcg/0.5 mL SYR (4YR UP) IM ONE (13:30)
--- NOTE | 2017-06-25 09:36 | CARD ---
APPROVED REPORT EKG Measurement Heart [id number] <Conclusion> Sinus tachycardia Otherwise normal ECG
== END 2017-06-23 14:15 | disposition home or self-care (01) ==
LOC: C.ER 10:58 → UNDOADMIN 12:14 → C.9E 12:14 → C.3T 18:32
PROVIDERS: ADMIT Hospitalist; ATTEND Hospitalist
DX: J44.1 Chronic obstructive pulmonary disease with (acute) exacerbation (principal); E03.9 Hypothyroidism, unspecified; E11.9 Type 2 diabetes mellitus without complications; G20 Parkinson's disease; Z79.84 Long term (current) use of oral hypoglycemic drugs; I11.9 Hypertensive heart disease without heart failure; I51.7 Cardiomegaly
CPT/HCPCS: 36415; 71020; 80053; 80061; 82803; 82948; 83036; 83880; 85025; 90471; 90732; 93005; 93970; 94640; 96372; 96374; 97116; 97162; 99285; G0378; G8978; G8979; J0456; J1650; J2920; J2930